=== PATIENT | male | born 1960 | race Caucasian/White ===

== ENCOUNTER 2017-11-06 09:57 | Day surgery (SDC) | payer OTHER ==
[~2017-11-06 09:57] MED LIST: Lactated Ringers 1,000 ML IV SCH; Lidocaine 1%/Sod Bicarbonate in NS 8.4% 1 ML Syringe IDERM PRN; Sodium Chloride 0.9% 10 ML Syringe FLUSH PRN
[2017-11-06] MEDS ORDERED: Propofol 200 MG/20 ML SDV ONE ×3 (09:58→11:07)
--- NOTE | 2017-11-06 10:16 | PCM.PREANE ---
Preanesthetic Assessment - Anesthesia/Transfusion/Family Hx Anesthesia History: Prior Anesthesia Without Reaction Family History of Anesthesia Reaction: No Transfusion History: No Prior Transfusion(s) - Review of Systems General: Chills (chills since oct 17 AAA ) Pulmonary: Shortness of Breath Cardiovascular: Chest Pain (heart burn) Gastrointestinal: No Symptoms Neurological: No Symptoms Other: Reports: Diabetes, Depression - Physical Assessment NPO Status Date: 11/05/17 NPO Status Time: 23:30 Pulse: 77 O2 Sat by Pulse Oximetry: 97 Respiratory Rate: 24 Blood Pressure: 134/72 Temperature: 98 F Height: 6 ft 3 in Weight: 117.4 kg ASA Class: 3 Mental Status: Alert & Oriented x3 Airway Class: Mallampati = 2 Dentition: Reports: Dentures (top ), Missing Tooth/Teeth (many missing bottom) Thyro-Mental Finger Breadths: 3 Mouth Opening Finger Breadths: 3 ROM/Head Extension: Full Lungs: Normal Respiratory Effort, Decreased Breath Sounds, Wheezing (exp wheezes left base) Cardiovascular: Regular Rate, Regular Rhythm - Lab Values: FBS this am 1016 is 106 - Allergies Allergies/Adverse Reactions: Allergies Allergy/AdvReac Type Severity Reaction Status Date / Time No Known Allergies Allergy Verified 11/03/17 13:44 - Blood Blood Available: No - Anesthesia Plan Pre-Op Medication Ordered: Beta Eugenia Beta Eugenia: Carvedilol Med Last Dose Date: 11/04/17 - Acknowledgements Anesthesia Type Planned: MAC Pt an Appropriate Candidate for the Planned Anesthesia: Yes Alternatives and Risks of Anesthesia Discussed w Pt/Guardian: Yes Pt/Guardian Understands and Agrees with Anesthesia Plan: Yes PreAnesthesia Questionnaire HEENT History: Reports: Hard of Hearing, Other (See Below) Other HEENT History: upper denture, has hearing aid Cardiovascular History: Reports: CAD, High Cholesterol, Hypertension, [place] Respiratory History: Reports: Asthma, COPD, SOB Genitourinary History: Reports: Renal Disease PILLOW CLEANER History: Reports: None Musculoskeletal History: Reports: None Neurological History: Reports: None Psychiatric History: Reports: Anxiety Endocrine/Metabolic History: Reports: Diabetes, Type II, Obesity/BMI 30+ Hematologic History: Reports: None Immunologic History: Reports: None Oncologic (Cancer) History: Reports: None Dermatologic History: Reports: Other (See Below) Other Dermatologic History: left back soft tissue mass excision - Past Surgical History Head Surgeries/Procedures: Reports: None Cardiovascular Surgical History: Reports: AAA Repair, Coronary Artery Bypass Respiratory Surgical History: Reports: None GI Surgical History: Reports: Hernia Repair/Other Female Surgical History: Reports: None Male Surgical History: Reports: None Endocrine Surgical History: Reports: None Neurological Surgical History: Reports: None Oncologic Surgical History: Reports: None Dermatological Surgical History: Reports: None - SUBSTANCE USE Smoking Status *Q: Current Every Day Smoker (1-2 ppd for 41 years) Tobacco Use Within Last Twelve Months: Cigarettes Second Hand Smoke Exposure: Yes Days Per Week of Alcohol Use: 0 (hardly ever) Recreational Drug Use History: No - HOME MEDS Home Medications: Home Meds Albuterol/Ipratropium [DuoNeb 3.0-0.5 MG/3 ML] 2 unit INH BID 02/03/15 [History] Carvedilol [Coreg] 12.5 mg PO BID 02/03/15 [History] Citalopram Hydrobromide [Celexa] 40 mg PO DAILY 02/03/15 [History] Clopidogrel [Plavix] 75 mg PO DAILY 02/03/15 [History] Fenofibrate [Lofibra] 160 mg PO DAILY 02/03/15 [History] atorvaSTATin [Lipitor] 80 mg PO BEDTIME 02/03/15 [History] metFORMIN [Glucophage] 500 mg PO BID 02/03/15 [History] Acetaminophen with Codeine [Tylenol with Codeine #3 Tablet] 1 tab PO Q6H PRN [History] Aspirin [Halfprin] 81 mg PO DAILY 11/03/17 [History] Sennosides/Docusate Sodium [Sennosides-Docusate Sodium] 2 tab PO DAILY PRN 11/03 [History] amLODIPine Besylate [Amlodipine Besylate] 5 mg PO DAILY 11/03/17 [History] - CURRENT (IN HOUSE) MEDS Current Meds: Current Medications Lactated Ringer's (Ringers, Lactated) 1,000 mls @ 125 mls/hr IV ASDIRECTED EFRAÍN Stop: 11/06/17 23:00 Lidocaine/Sodium Bicarbonate (Buffered Lidocaine 1% In Ns 8.4%) 0.25 ml IDERM ONETIME PRN PRN Reason: Prior to IV Start Stop: 11/06/17 18:00 Sodium Chloride (Saline Flush) 10 ml FLUSH ASDIRECTED PRN PRN Reason: Keep Vein Open Stop: 11/06/17 18:00 Discontinued Medications Propofol (Diprivan 20 Ml) Confirm Administered Dose 200 mg .ROUTE .STK-MED ONE Stop: 11/06/17 09:59
[2017-11-06] MEDS ORDERED: Albuterol/Ipratropium 3.0-0.5 MG/3 ML Neb Soln NEB PRN (10:21)
[2017-11-06] MEDS ORDERED: fentaNYL 100 MCG/2 ML SDV ONE (10:30)
[2017-11-06] MEDS ORDERED: Lidocaine 1% 4 ML ONE (10:58)
[2017-11-06] MEDS ORDERED: Phenylephrine/Normal Saline 100 MCG/ML 10 ML Syringe ONE (11:10)
--- NOTE | 2017-11-06 11:29 | PCM.OPNOTE ---
- General Post-Op/Procedure Note Date of Surgery/Procedure: 11/06/17 Operative Procedure(s): EGD/Colonoscopy Pre Op Diagnosis: GI bleeding Post-Op Diagnosis: Same Anesthesia Technique: MAC Primary Surgeon: Price Guillory EBL in mLs: 0 Complications: None Condition: Good
[2017-11-06 11:34] VITALS: BP 110/67
--- NOTE | 2017-11-06 11:35 | PCM48HPAN ---
Post Anesthesia Note - EVALUATION WITHIN 48HRS OF ANESTHETIC Vital Signs in Normal Range: Yes Patient Participated in Evaluation: Yes Respiratory Function Stable: Yes Airway Patent: Yes Cardiovascular Function Stable: Yes Hydration Status Stable: Yes Pain Control Satisfactory: Yes Nausea and Vomiting Control Satisfactory: Yes Mental Status Recovered: Yes Pulse Rate: 73 SaO2: 92 Resp Rate: 16 Temperature: 97.2 F Blood Pressure: 110/67
--- NOTE | 2017-11-07 06:47 | OR ---
DATE OF OPERATION: 11/06/2017 SURGEON: Price Guillory MD PREOPERATIVE DIAGNOSIS: Gastrointestinal bleeding. POSTOPERATIVE DIAGNOSIS: Gastrointestinal bleeding. OPERATION PERFORMED: Colonoscopy of cecum. FINDINGS: [id number] sigmoid diverticulosis. There were no angiodysplasias, neoplasias, large tumor masses, or ulcerations. DESCRIPTION OF PROCEDURE: The patient having been taken to the endoscopy room and undergone upper GI endoscopy which was well tolerated, IV sedation was continued for colonoscopy. Placed in left lateral position. Perianal area was inspected and was normal. Rectal exam showed good sphincter tone. A video Olympus colonoscope was then introduced into the rectum and threaded up without problem to the cecum, where the appendicular orifice with ileocecal valve was noted. Prep was excellent throughout the colon. [place] cleansing score grade A and the scope was slowly withdrawn showing the cecum, ascending colon, transverse colon, descending colon, sigmoid colon, and rectum. The above noted was found. The patient tolerated the procedure, sent to recovery room in a stable condition, and will be followed up in the clinic. ANESTHESIA: ESTIMATED BLOOD LOSS: MMODAL /[id number]
--- NOTE | 2017-11-07 06:50 | OR ---
DATE OF OPERATION: 11/06/2017 SURGEON: Price Guillory MD PREOPERATIVE DIAGNOSIS: Gastrointestinal bleed. POSTOPERATIVE DIAGNOSIS: Gastrointestinal bleed. OPERATION PERFORMED: Esophagogastroduodenoscopy. FINDINGS: Normal study. ANESTHESIA: Done under IV sedation. DESCRIPTION OF PROCEDURE: The patient taken to the endoscopy room, placed in a supine position, connected to monitoring equipment, and given IV sedation. He was placed in the left lateral position. Bite-block was inserted. Video Olympus gastroscope placed in a posterior oropharynx, under direct vision, threaded past the cricopharyngeus down the esophagus into the stomach. Stomach was insufflated and the scope passed through the pylorus to the 2nd portion of the duodenum and slowly withdrawn showing no active ulcerations. Antrum, body, cardia, and fundus of stomach were seen and J-maneuver was performed noting no active disease in the stomach and the hiatus was intact. Small hiatal hernia was noted at the GE junction. GE junction located about 38 to 40 cm. The Z-line was sharp. Rest of the esophagus viewed. Scope withdrawn was normal. The patient tolerated the procedure and IV sedation will be continued for colonoscopy. ESTIMATED BLOOD LOSS: MMODAL /[id number]
== END 2017-11-06 12:02 | disposition home or self-care (01) ==
LOC: JD.SDS 09:57
PROVIDERS: ATTEND Surgery
DX: K57.30 Diverticulosis of large intestine without perforation or abscess without bleeding (principal); K44.9 Diaphragmatic hernia without obstruction or gangrene; F41.9 Anxiety disorder, unspecified; I25.10 Atherosclerotic heart disease of native coronary artery without angina pectoris; J44.9 Chronic obstructive pulmonary disease, unspecified; E11.9 Type 2 diabetes mellitus without complications; E78.5 Hyperlipidemia, unspecified; I10 Essential (primary) hypertension; I25.2 Old myocardial infarction; F17.210 Nicotine dependence, cigarettes, uncomplicated; F32.9 Major depressive disorder, single episode, unspecified; E66.9 Obesity, unspecified; Z68.30 Body mass index [BMI] 30.0-30.9, adult; Z79.02 Long term (current) use of antithrombotics/antiplatelets; Z79.01 Long term (current) use of anticoagulants; Z91.81 History of falling; Z95.5 Presence of coronary angioplasty implant and graft; Z79.899 Other long term (current) drug therapy; Z79.84 Long term (current) use of oral hypoglycemic drugs
CPT/HCPCS: 43235; 45378; 82962; 94640; J3010; J7120; 00813; J2001; J2704

== ENCOUNTER 2018-02-21 07:47 | Emergency (ER) | payer OTHER ==
[2018-02-21 08:04] VITALS: BP 162/95
== END 2018-02-21 09:10 | disposition left against medical advice (07) ==
LOC: JD.ED 07:47
DX: Z53.21 Procedure and treatment not carried out due to patient leaving prior to being seen by health care provider (principal)
CPT/HCPCS: 82962

== ENCOUNTER 2019-05-19 02:00 | Emergency (ER) | payer SELFPAY ==
[2019-05-19 02:11] VITALS: BP 161/97; PULSE 67
[2019-05-19] MEDS ORDERED: predniSONE 20 MG Tab PO STA (02:32)
[2019-05-19] MEDS ORDERED: Acetaminophen/HYDROcodone 325-5 MG Tab PO ONE (02:32)
[2019-05-19] MEDS ORDERED: Orphenadrine 100 MG Tab.ER PO STA (02:32)
--- NOTE | 2019-05-19 02:41 | EDM.PDOC ---
ED HPI GENERAL MEDICAL PROBLEM - General Chief Complaint: Neck Problem Stated Complaint: base of neck extreme pain Time Seen by Provider: 05/19/19 02:11 Source of Information: Reports: Patient, Family () History Limitations: Reports: Physical Impairment (Heart of hearing, and forgot hearing aids at home) - History of Present Illness INITIAL COMMENTS - FREE TEXT/NARRATIVE: The patient states that he woke with severe pain to the base of his neck 3 mornings ago. He states that he has to keep his head tilted forward, because his pain is made worse if he extends his neck, even if it is done passively. He feels best if he supports the weight of his head in his hands. The pain radiates across his upper back and into his upper shoulders, but not down either upper extremity. He denies any tingling or numbness to either upper extremity. No injury to his neck. No prior similar symptoms. The patient and his have tried icy hot, Biofreeze, and CBD oil. He had a massage treatment this morning. He has been taking Tylenol and Aleve area he states that nothing has helped. The patient's PCP is Dr. Marquis aHnnah. Neck Pain Score (Numeric/FACES): 10 - Related Data Allergies Allergy/AdvReac Type Severity Reaction Status Date / Time No Known Allergies Allergy Verified 05/19/19 02:12 Home Meds: Home Meds Albuterol/Ipratropium [DuoNeb 3.0-0.5 MG/3 ML] 2 unit INH ASDIRECTED PRN [History] Carvedilol [Coreg] 12.5 mg PO DAILY 02/03/15 [History] Clopidogrel [Plavix] 75 mg PO DAILY 02/03/15 [History] Fenofibrate [Lofibra] 160 mg PO DAILY 02/03/15 [History] atorvaSTATin [Lipitor] 80 mg PO BEDTIME 02/03/15 [History] metFORMIN [Glucophage] 500 mg PO BID 02/03/15 [History] Aspirin [Halfprin] 81 mg PO DAILY 11/03/17 [History] amLODIPine Besylate [Amlodipine Besylate] 5 mg PO DAILY 11/03/17 [History] 5-Hydroxytryptophan [5-Htp] 0 mg PO DAILY 04/22/18 [History] Budesonide/Formoterol Fumarate [Symbicort 160-4.5 Mcg Inhaler] 2 puff INH BID [History] Cbd Oil 2 drop SL DAILY 04/22/18 [History] Naproxen Sodium [Aleve] 1 tab PO DAILY 04/22/18 [History] Acetaminophen/HYDROcodone [[place] 325-5 MG] 1 - 2 tab PO Q6H PRN #20 tablet 05/19 [Rx] Orphenadrine [Norflex] 1 tab PO Q12H PRN #14 tab 05/19/19 [Rx] predniSONE [Prednisone] 1 tab PO QAM #5 tablet 05/19/19 [Rx] Past Medical History HEENT History: Reports: Hard of Hearing Cardiovascular History: Reports: CAD, High Cholesterol, Hypertension, [place] (2011, 2013) Respiratory History: Reports: COPD (suspected, never tested) Psychiatric History: Reports: Anxiety Endocrine/Metabolic History: Reports: Diabetes, Type II, Obesity/BMI 30+ - Past Surgical History HEENT Surgical History: Reports: Oral Surgery (dental extractions) Cardiovascular Surgical History: Reports: AAA Repair (endograft), Coronary Artery Stent (x 2), Other (See Below) (Coronary angiogram x 2) GI Surgical History: Reports: Hernia, Inguinal (bilateral - 5 total) Musculoskeletal Surgical History: Reports: ORIF (right thumb, with hardware subsequently removed) Dermatological Surgical History: Reports: Other (See Below) (Lipoma excised off back) Social & Family History - Tobacco Use Smoking Status *Q: Current Every Day Smoker Years of Tobacco use: 42 Packs/Tins Daily: 2 Packs/Tins Daily Comment: Down from 2.5 ppd - Caffeine Use Caffeine Use: Reports: None - Alcohol Use Alcohol Use History: No - Recreational Drug Use Recreational Drug Use: Yes Drug Use in Last 12 Months: No Recreational Drug Type: Reports: Marijuana/Hashish (last smoked around 1989) - Living Situation & Occupation Living situation: Reports: , with Spouse, with Family (2 kids) 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 ED EXAM, UPPER BACK/NECK PAIN - Physical Exam Exam: See Below Exam Limited By: No Limitations General Appearance: Alert, WD/WN, Mild Distress (Appears uncomfortable) Eye Exam: Bilateral Eye: EOMI, Normal Inspection Ears Exam: Normal External Exam, Hearing Grossly Normal Nose Exam: Normal Inspection Throat/Mouth Exam: Normal Inspection, Normal Lips, Normal Voice, No Airway Compromise Head Exam: Atraumatic, Normocephalic Neck Exam: Other (The patient keeps his neck flexed, with his head forward. He is able to turn his head to the left and right to about 30 each direction ( although at one point he intentionally twisted his head to the right to crack his neck, requiring much more than 30 turn). There is no visible abnormality to the patient's posterior neck, such as swelling, erythema, ecchymosis, or abrasion, however, the patient does report tenderness to the musculature as well as to the spinous processes and around C7 and even upper thoracic vertebrae.) Cardiovascular/Respiratory: Regular Rate, Rhythm, No M/R/G, Normal Peripheral Pulses, No JVD, Normal Breath Sounds, No Respiratory Distress GI/Abdominal: Normal Bowel Sounds, Soft, Non-Tender, No Organomegaly, No Distention, No Abnormal Bruit, No Mass (Male) Exam: Deferred Rectal (Males) Exam: Deferred Back Exam: Normal Inspection, Full Range of Motion, NT Extremities: Normal Inspection, Normal Range of Motion, No Pedal Edema, Normal Capillary Refill Neurologic: No Motor/Sensory Deficits, Alert, Oriented x 3 Psychiatric: Normal Affect Skin Exam: Normal Color, Warm/Dry ED LACERATION/WOUND PROCEDURES - Laceration/Wound Repair Left Elbow # of Sutures: 7 Course - Vital Signs Last Recorded V/S: Last Vital Signs Temp 36.3 C 05/19/19 02:07 Pulse 67 05/19/19 02:07 Resp 20 05/19/19 02:07 BP 161/97 H 05/19/19 02:07 Pulse Ox 93 L 05/19/19 02:07 - Orders/Labs/Meds Meds: Medications Discontinued Medications Generic Name Dose Route Start Last Admin Trade Name Warnerq PRN Reason Stop Dose Admin Hydrocodone Bitart/Acetaminophen 2 tab 05/19/19 02:32 05/19/19 02:38 [place] 325-5 Mg PO 05/19/19 02:33 2 tab ONETIME ONE Administration Orphenadrine Citrate 100 mg 05/19/19 02:32 05/19/19 02:39 Norflex PO 05/19/19 02:33 100 mg ONETIME STA Administration Prednisone 60 mg 05/19/19 02:32 05/19/19 02:39 Prednisone PO 05/19/19 02:33 60 mg ONETIME STA Administration - Re-Assessments/Exams Free Text/Narrative Re-Assessment/Exam: 05/19/19 02:33 The cause of the patient's neck pain appears to be due to significant muscle spasm, although the underlying cause of that, is unclear. It could be due to a herniated intervertebral disc, or, I think it is more likely due to arthritis. The patient was able to crack his neck in my presence, but stated that it did not help. I don't believe that would be tolerable if he had a herniated intervertebral disc. Since this developed in his sleep, a neck fracture is not really a consideration, therefore I don't see an indication for a CT scan of his cervical spine, however, a MRI of his spine would likely answer the question. For today's purposes, the patient will be treated with Norflex as a muscle relaxant, [place] as a pain reliever, and prednisone as an anti-inflammatory. I instructed the patient to not take an NSAID while he is taking prednisone. I would also like the patient to follow-up with his PCP within a week. The patient stated that he would try. Departure - Departure Time of Disposition: 02:37 Disposition: Home, Self-Care 01 Condition: Good Clinical Impression: Neck pain - Discharge Information *PRESCRIPTION DRUG MONITORING PROGRAM REVIEWED*: Not Applicable *COPY OF PRESCRIPTION DRUG MONITORING REPORT IN PATIENT LARY: Not Applicable Prescriptions: Acetaminophen/HYDROcodone [[place] 325-5 MG] 1 - 2 tab PO Q6H PRN #20 tablet PRN Reason: Pain (Severe 7-10) Orphenadrine [Norflex] 1 tab PO Q12H PRN #14 tab PRN Reason: Muscle Spasm predniSONE [Prednisone] 1 tab PO QAM #5 tablet Instructions: Muscle Cramps and Spasms, [id number] Referrals: Marquis Hannah MD [Physician] - Forms: ED Department Discharge Additional Instructions: You were seen in the emergency room for severe lower neck pain. Your neck pain appears to be due to a muscle spasm, but the cause of your muscle spasm is unclear. It may be due to arthritis of your neck, or a herniated intervertebral disc. You have been started on the muscle relaxant Norflex, the opioid pain reliever [place], and the steroid prednisone. Prescriptions for each have been given to you. Take one tablet of Norflex every 12 hours, as prescribed. Take 1 to 2 tablets of [place] up to every 6 hours, as needed for pain. If you take [place], do not drive or operate heavy machinery for 12 hours afterwards. [place] may cause constipation, so consider taking a stool softener. Take one tablet of prednisone every morning, with food, starting tomorrow morning, 05/20/2019, as prescribed. If you take prednisone, do not also take an NSAID, such as aspirin, ibuprofen (Advil, Motrin), or naproxen (Aleve), as taking both significantly increases your risk of a stomach bleed. Follow-up with your PCP, Dr. Marquis Hannah, within a week. If any other problems, please do not hesitate to return to the ER.
== END 2019-05-19 02:53 | disposition home or self-care (01) ==
LOC: JD.ED 02:00
DX: M54.2 Cervicalgia (principal); I10 Essential (primary) hypertension; E78.00 Pure hypercholesterolemia, unspecified; I25.2 Old myocardial infarction; F41.9 Anxiety disorder, unspecified; E11.9 Type 2 diabetes mellitus without complications; F17.210 Nicotine dependence, cigarettes, uncomplicated; Z79.899 Other long term (current) drug therapy; Z79.01 Long term (current) use of anticoagulants; Z79.82 Long term (current) use of aspirin; Z79.84 Long term (current) use of oral hypoglycemic drugs
CPT/HCPCS: 99283; A9270

== ENCOUNTER 2019-05-28 11:14 | Emergency (ER) | payer SELFPAY ==
[2019-05-28 11:37] VITALS: BP 168/105; PULSE 72
[2019-05-28] MEDS ORDERED: Ketorolac 60 MG/2 ML SDV IM ONE (12:04)
[2019-05-28] MEDS ORDERED: Cyclobenzaprine 10 MG Tab PO ONE (12:04)
--- NOTE | 2019-05-28 12:21 | EDM.PDOC ---
ED HPI GENERAL MEDICAL PROBLEM - General Chief Complaint: Neck Problem Stated Complaint: NECK PAIN Time Seen by Provider: 05/28/19 11:43 Source of Information: Reports: Patient History Limitations: Reports: No Limitations - History of Present Illness INITIAL COMMENTS - FREE TEXT/NARRATIVE: The patient presents with neck pain. This started 2 weeks ago. He woke up one morning with this. He had no injury. The pain is in the lower cervical spine. He was seen here and at the walk in clinic and he was given some medications for the pain. He ran out. He sees his doctor in 2 days. He has no numbness or weakness. He has no other symptoms such as fever, chills, cough, chest pain , shortness of breath, abdominal pain, nausea or vomiting. He has no history of neck problems. Onset: Gradual Duration: Week(s): (2) Location: Reports: Neck Quality: Reports: Sharp Severity: Severe Improves with: Reports: Immobilization Worsens with: Reports: Movement Context: Denies: Trauma Associated Symptoms: Reports: No Other Symptoms Right Lower Neck Pain Score (Numeric/FACES): 10 - Related Data Allergies Allergy/AdvReac Type Severity Reaction Status Date / Time No Known Allergies Allergy Verified 05/28/19 11:37 Home Meds: Home Meds Albuterol/Ipratropium [DuoNeb 3.0-0.5 MG/3 ML] 2 unit INH ASDIRECTED PRN [History] Carvedilol [Coreg] 12.5 mg PO DAILY 02/03/15 [History] Clopidogrel [Plavix] 75 mg PO DAILY 02/03/15 [History] Fenofibrate [Lofibra] 160 mg PO DAILY 02/03/15 [History] atorvaSTATin [Lipitor] 80 mg PO BEDTIME 02/03/15 [History] metFORMIN [Glucophage] 500 mg PO BID 02/03/15 [History] Aspirin [Halfprin] 81 mg PO DAILY 11/03/17 [History] amLODIPine Besylate [Amlodipine Besylate] 5 mg PO DAILY 11/03/17 [History] Cbd Oil 2 drop SL DAILY 04/22/18 [History] predniSONE [Prednisone] 1 tab PO QAM #5 tablet 05/19/19 [Rx] Cyclobenzaprine [Flexeril] 10 mg PO TID PRN #20 tab 05/28/19 [Rx] Hydrocodone/Acetaminophen [Hydrocodon-Acetaminophen 5-325] 1 - 2 each PO Q6HR PRN #20 tablet 05/28/19 [Rx] Past Medical History HEENT History: Reports: Hard of Hearing Other HEENT History: upper denture, has hearing aid Cardiovascular History: Reports: CAD, High Cholesterol, Hypertension, [place] Respiratory History: Reports: COPD Genitourinary History: Reports: Renal Disease CAMPAIGN MARKETING MANAGER History: Reports: None Musculoskeletal History: Reports: None Neurological History: Reports: None Psychiatric History: Reports: Anxiety Endocrine/Metabolic History: Reports: Diabetes, Type II, Obesity/BMI 30+ Hematologic History: Reports: None Immunologic History: Reports: None Oncologic (Cancer) History: Reports: None Dermatologic History: Reports: Other (See Below) Other Dermatologic History: left back soft tissue mass excision - Infectious Disease History Infectious Disease History: Reports: Chicken Pox, Measles, Mumps - Past Surgical History Head Surgeries/Procedures: Reports: None HEENT Surgical History: Reports: Oral Surgery Cardiovascular Surgical History: Reports: AAA Repair, Coronary Artery Stent, Other (See Below) GI Surgical History: Reports: Hernia, Inguinal Male Surgical History: Reports: None Neurological Surgical History: Reports: None Musculoskeletal Surgical History: Reports: ORIF Oncologic Surgical History: Reports: None Dermatological Surgical History: Reports: Other (See Below) Social & Family History - Tobacco Use Smoking Status *Q: Current Every Day Smoker Years of Tobacco use: 40 Packs/Tins Daily: 2 Second Hand Smoke Exposure: Yes - Caffeine Use Caffeine Use: Reports: Coffee, Tea - Recreational Drug Use Recreational Drug Use: No - Living Situation & Occupation Living situation: Reports: , with Spouse, with Family (2 kids) 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) ED ROS GENERAL - Review of Systems Review Of Systems: See Below Constitutional: Reports: No Symptoms HEENT: Reports: No Symptoms Respiratory: Reports: No Symptoms Cardiovascular: Reports: No Symptoms Endocrine: Reports: No Symptoms GI/Abdominal: Reports: No Symptoms : Reports: No Symptoms Musculoskeletal: Reports: Neck Pain ED EXAM, UPPER BACK/NECK PAIN - Physical Exam Exam: See Below Exam Limited By: No Limitations General Appearance: Alert, No Apparent Distress Ears Exam: Normal External Exam Nose Exam: Normal Inspection Head Exam: Atraumatic, Normocephalic Neck Exam: Tenderness (To the base of his neck and to the right) Cardiovascular/Respiratory: Regular Rate, Rhythm, No M/R/G, Normal Breath Sounds , No Respiratory Distress GI/Abdominal: Soft, Non-Tender, No Organomegaly, No Mass Back Exam: Normal Inspection Extremities: Normal Inspection Neurologic: No Motor/Sensory Deficits, Alert, Oriented x 3 Course - Vital Signs Last Recorded V/S: Last Vital Signs Temp 97.8 F 05/28/19 11:25 Pulse 72 05/28/19 11:25 Resp 20 05/28/19 11:25 BP 168/105 H 05/28/19 11:25 Pulse Ox 97 05/28/19 11:25 - Orders/Labs/Meds Meds: Medications Discontinued Medications Generic Name Dose Route Start Last Admin Trade Name Freq PRN Reason Stop Dose Admin Cyclobenzaprine HCl 10 mg 05/28/19 12:04 05/28/19 12:24 Flexeril PO 05/28/19 12:05 10 mg ONETIME ONE Administration Ketorolac Tromethamine 60 mg 05/28/19 12:04 05/28/19 12:23 Toradol IM 05/28/19 12:05 60 mg ONETIME ONE Administration - Re-Assessments/Exams Free Text/Narrative Re-Assessment/Exam: 05/28/19 12:20 I ordered a shot of toradol 60mg IM and flexeril 10mg PO. I will give him more flexeril and hydrocodone. I can get him in for an MRI on the . Departure - Departure Time of Disposition: 12:30 Disposition: Home, Self-Care 01 Condition: Good Clinical Impression: Neck pain - Discharge Information *PRESCRIPTION DRUG MONITORING PROGRAM REVIEWED*: No *COPY OF PRESCRIPTION DRUG MONITORING REPORT IN PATIENT LARY: No Prescriptions: Hydrocodone/Acetaminophen [Hydrocodon-Acetaminophen 5-325] 1 - 2 each PO Q6HR PRN #20 tablet PRN Reason: Pain Cyclobenzaprine [Flexeril] 10 mg PO TID PRN #20 tab PRN Reason: Pain Referrals: Marquis Hannah MD [Primary Care Provider] - 2 Days Forms: ED Department Discharge Additional Instructions: Take the medication as prescribed. Try ice or heat for the paint. I have ordered an MRI of your cervical spine on the 04 of June at 9am. Please come early to register. Follow up with Dr Hannah in 2 days. If he can get you in sooner cancer the MRI here. Please return if you are worse.
== END 2019-05-28 12:45 | disposition home or self-care (01) ==
LOC: JD.ED 11:14
DX: M54.2 Cervicalgia (principal); E11.9 Type 2 diabetes mellitus without complications; I10 Essential (primary) hypertension; I25.10 Atherosclerotic heart disease of native coronary artery without angina pectoris; J44.9 Chronic obstructive pulmonary disease, unspecified; I25.2 Old myocardial infarction; E78.00 Pure hypercholesterolemia, unspecified; E66.9 Obesity, unspecified; Z68.34 Body mass index [BMI] 34.0-34.9, adult; F17.210 Nicotine dependence, cigarettes, uncomplicated; Z79.82 Long term (current) use of aspirin; Z79.899 Other long term (current) drug therapy; Z79.84 Long term (current) use of oral hypoglycemic drugs; Z79.02 Long term (current) use of antithrombotics/antiplatelets
CPT/HCPCS: 96372; 99283; A9270; J1885